=== PATIENT | female | born 1960 | race American Indian/Alaskan Native ===

== ENCOUNTER 2021-02-23 06:23 | Emergency (ER) | payer SELFPAY ==
--- NOTE | 2021-02-23 07:05 | Emergency Department Report ---
ED CPR HPI - General Stated Complaint: CARDIAC ARREST Time Seen by Provider: 02/23/21 06:50 Source: family, EMS Mode of arrival: Stretcher Limitations: Altered Mental Status - History of Present Illness MD Complaint: found unresponsive, stopped breathing Onset/Timin -: hour(s) Place: home Bystander CPR Performed: No AED Applied by Bystander/Manager Of Software: No Shock Advised: No Initial Findings in the Field: unresponsive, no respirations, no pulse ROSC in the Field: No Associated Injuries: No Associated Symptoms: shortness of breath Treatments Prior to Arrival: intubation, epinephrine mgs # ED Review of Systems ROS: Stated complaint: CARDIAC ARREST Other details as noted in HPI Comment: Unobtainable due to pts medical conditions ED Past Medical Hx - Past Medical History Hx Hypertension: Yes Hx Heart Attack/AMI: Yes ED Physical Exam - General Limitations: Altered Mental Status General appearance: other (UNRESPONSIVE) - Head Head exam: Present: atraumatic - Eye Eye exam: Present: other (FIXED PUPILS) - ENT ENT exam: Present: normal exam - Respiratory Respiratory exam: Present: other (NO SPONT BREATH ) - Cardiovascular Cardiovascular Exam: Present: other (NO PULSE) - GI/Abdominal GI/Abdominal exam: Present: soft - Neurological Exam Neurological exam: Present: other (UNSPONSVE ) ED Course - Reevaluation(s) Reevaluation #1: 02/23/21 07:03 INTUBATED PRIOR TO ARRIVAL , EPI TIMES 3 BICARB AND CALCIUM AND NARCAN GIVEN bs 111, PRONOUNCED AT 634 Critical care attestation.: If time is entered above; I have spent that time in minutes in the direct care of this critically ill patient, excluding procedure time. ED Disposition Clinical Impression: Cardiac arrest Disposition: 20 Is pt being admited?: No Does the pt Need Aspirin: No Condition: Undetermined Instructions: CPR, Adult
== END 2021-02-23 19:00 ==
LOC: ED 06:23
DX: I46.9 Cardiac arrest, cause unspecified (principal)
CPT/HCPCS: 99285